=== PATIENT | male | born 1970 | race Asian ===

== ENCOUNTER → 2019-12-03 | Outpatient (CLI) | payer BC | END | disposition home or self-care (01) | LOC: RADPV 11:30 | DX: S92.812A Other fracture of left foot, initial encounter for closed fracture (principal); M20.12 Hallux valgus (acquired), left foot; X58.XXXA Exposure to other specified factors, initial encounter; Y93.89 Activity, other specified; Y92.89 Other specified places as the place of occurrence of the external cause; Y99.8 Other external cause status ==